=== PATIENT | female | born 1965 | race Caucasian/White ===

== ENCOUNTER → 2018-05-05 | Emergency (ER) | payer OTHER ==
[~2018-05-05] MED LIST: HYDROcodone/Acetaminophen 10/325 mg Tablet ONE; Ibuprofen 800 MG TAB ONE
--- NOTE | 2018-05-05 22:57 | RAD ---
RADIOGRAPH LEFT SHOULDER THREE VIEWS: HISTORY: A 53-year-old female status post traumatic injury to the left shoulder due to a fall. FINDINGS: There is no dislocation. No acute fracture is identified. IMPRESSION: Negative. POS: [facility]
--- NOTE | 2018-05-05 22:58 | CT ---
CT BRAIN NONCONTRAST: HISTORY: A 53-year-old female, status post acute head injury from fall. FINDINGS: There is no midline shift or any other mass effect. There is no evidence of acute intracranial hemor rhage, large cortical infarct, obstructive hydrocephalus, or extraaxial fluid collection. The calvar ium is intact. IMPRESSION: No acute intracranial findings. jn [] POS: [facility]
--- NOTE | 2018-05-05 22:59 | RAD ---
RADIOGRAPH LEFT HIP TWO VIEWS: HISTORY: A 53-year-old female with acute traumatic injury to the left hip from fall. FINDINGS: There is no dislocation. No fracture is identified. IMPRESSION: Negative. POS: [facility]
--- NOTE | 2018-05-05 23:00 | CT ---
CT CERVICAL SPINE NONCONTRAST: HISTORY: A 53-year-old female status post acute cervical trauma from fall. FINDINGS: There are no jumped or perched facets. There is no evidence of acute fracture. The vertebral body h eights are maintained. There is no prevertebral soft tissue swelling. IMPRESSION: No evidence of acute fracture or acute traumatic subluxation. [facility] [] POS: [facility]
== END ==
LOC: MADERS 21:17
DX: S06.0X0A Concussion without loss of consciousness, initial encounter (principal); T14.8XXA Other injury of unspecified body region, initial encounter; F17.210 Nicotine dependence, cigarettes, uncomplicated; W17.89XA Other fall from one level to another, initial encounter
CPT/HCPCS: 70450; 72125

== ENCOUNTER 2022-01-23 13:41 | Emergency (ER) | payer SELFPAY ==
[2022-01-23 14:45] LABS: #Basophils 0.1 thou/uL (0.0-0.2); #Eosinphils 0.2 thou/uL (0.0-0.7); #Lymphocytes 1.7 thou/uL (1.20-3.40); #Monocytes 0.5 thou/uL (0.11-0.59); #Neutrophils 5.8 thou/uL (1.40-6.50); %Basophils 0.6 % (0.0-1.0); %Eosinophils 2.7 % (0.0-10.0); %Lymphocytes 20.9 % (21.0-51.0); %Monocytes 5.4 % (0.0-10.0); %Neutrophils 70.4 % (42.0-75.0); Hemoglobin 15.5 g/dL (12.0-16.0); Mean Corpuscular HGB CONC 32.5 g/dL (32.0-36.0); Mean Corpuscular Hemoglobin 30.3 pg (27.0-31.0); Mean Corpuscular Volume 93.4 fL (78.0-98.0); Mean Platelet Volume 6.4 fL (7.4-10.4); Platelet Count 232 thou/uL (130-400); RBC Distribution Width 12.3 % (11.5-14.5); Red Blood Cell (RBC) Count 5.12 mill/uL (4.20-5.40); White Blood Cell (WBC) Count 8.3 thou/uL (4.8-10.8)
[2022-01-23 15:07] LABS: ALT (SGPT) 20 U/L (8-55); AST (SGOT) 18 U/L (5-34); Albumin 4.3 g/dL (3.5-5.0); Alkaline Phosphatase 64 U/L (40-110); Anion Gap 17 mmol/L (10-20); BUN (Urea Nitrogen) 25 mg/dL (9.8-20.1); Bilirubin, Total 0.5 mg/dL (0.2-1.2); Calc. Creatinine Clearance 0 mL/min (70-130); Calcium 9.3 mg/dL (7.8-10.44); Carbon Dioxide 24 mmol/L (22-29); Chloride 104 mmol/L (98-107); Globulin 2.6 g/dL (2.4-3.5); Glucose 85 mg/dL (70-105); Magnesium 1.9 mg/dL (1.6-2.6); Potassium 3.7 mmol/L (3.5-5.1); Protein, Total 6.9 g/dL (6.0-8.3); Sodium 141 mmol/L (136-145)
[2022-01-23] MEDS ORDERED: Aspirin Chewable 81 MG TAB ONE (17:30)
== END 2022-01-23 17:40 | disposition home or self-care (01) ==
LOC: MADERS 13:41
DX: R07.9 Chest pain, unspecified (principal); F17.210 Nicotine dependence, cigarettes, uncomplicated
CPT/HCPCS: 71045; 80053; 83735; 83880; 84484; 85025; 85379; 93005

== ENCOUNTER 2023-07-16 22:55 | Emergency (ER) | payer OTHER ==
[2023-07-17] MEDS ORDERED: Loratadine 10 MG TAB ONE (00:02)
[2023-07-17] MEDS ORDERED: Dexamethasone 10 MG/ML VIAL ONE (00:02)
== END 2023-07-17 00:20 | disposition home or self-care (01) ==
LOC: MADERS 22:55
DX: S60.561A Insect bite (nonvenomous) of right hand, initial encounter (principal); S50.861A Insect bite (nonvenomous) of right forearm, initial encounter; F17.210 Nicotine dependence, cigarettes, uncomplicated; W57.XXXA Bitten or stung by nonvenomous insect and other nonvenomous arthropods, initial encounter
CPT/HCPCS: 96372; 99282; J1100